=== PATIENT | male | born 1950 | race Caucasian/White ===

== ENCOUNTER 2016-12-14 22:18 | Emergency (ER) | payer BC, SELFPAY ==
[~2016-12-14 22:18] MED LIST: CIPRO500 MG PO; FLOMAX0.4 MG PO; GENOPTIC5 ML OP; NAPROSYN500 MG PO; PERCOCET 5/3251 TAB PO; TYLENOL W/CODEI1 TAB PO
[2016-12-14] MEDS ORDERED: COZAAR100 M1 PO (23:10)
[2016-12-14] MEDS ORDERED: MUCUS RELIEF D1 EAC1 PO (23:10)
[2016-12-14] MEDS ORDERED: ZITHROMAX250 M1 PO (23:11)
[2016-12-14] MEDS ORDERED: VITAMIN D31000 UNI3 PO (23:13)
[2016-12-14] MEDS ORDERED: VENTOLIN HFA18 G2 PO (23:45)
[2016-12-14] MEDS ORDERED: PREDNISONE20 M1 PO (23:45)
[2016-12-14] MEDS ORDERED: CHERATUSSIN AC118 M1 PO (23:45)
== END 2016-12-15 00:09 ==
LOC: EDMED 22:18
DX: J20.9 Acute bronchitis, unspecified (principal); Z87.442 Personal history of urinary calculi; Z88.2 Allergy status to sulfonamides